=== PATIENT | female | born 1965 | race Caucasian/White ===

== ENCOUNTER 2017-05-23 11:16 | Emergency (ER) | payer MEDICARE, OTHER | END 2017-05-23 21:42 | disposition left against medical advice (07) | LOC: UCCORT 11:16 | DX: R05 Cough (principal); Z53.21 Procedure and treatment not carried out due to patient leaving prior to being seen by health care provider ==

== ENCOUNTER 2017-05-23 11:34 | Emergency (ER) | payer MEDICARE, OTHER ==
[2017-05-23 12:03] VITALS: BP 122/79
--- NOTE | 2017-05-23 12:39 | UC ---
Respiratory Complaint HPI - HPI Summary HPI Summary: Pt c/o cough,SOB with exertion and wheezing X 7 days. Pt is a current everyday smoker. - History of Current Complaint Chief Complaint: UCRespiratory Stated Complaint: COLD LIKE SXS Time Seen by Provider: 05/23/17 12:13 Hx Obtained From: Patient Hx Last Menstrual Period: 05/2016 ?: No Onset/Duration: Gradual Onset, Lasting Days - 7, Still Present Timing: Constant Severity Initially: Mild Severity Currently: Moderate Pain Intensity: 5 Character: Cough: Nonproductive Aggravating Factors: Allergens, Exertion, Deep Breaths Alleviating Factors: Nothing Associated Signs And Symptoms: Positive: Dyspnea, Wheezing, URI, Nasal Congestion Related History: Seasonal Allergies - Risk Factors Pulmonary Embolism Risk Factors: Smoking Cardiac Risk Factors: Smoking Pseudomonas Risk Factors: Negative Tuberculosis Risk Factors: Smoking - Allergies/Home Medications Allergies/Adverse Reactions: Allergies Allergy/AdvReac Type Severity Reaction Status Date / Time No Known Allergies Allergy Verified 05/23/17 12:03 Home Medications: Home Medications Sertraline* [Zoloft*] 50 mg PO DAILY 05/23/17 [History Confirmed 05/23/17] PMH/Surg Hx/FS Hx/Imm Hx Previously Healthy: Yes Other History Of: Negative For: HIV, Hepatitis B, Hepatitis C, Anticoagulant Therapy - Surgical History Surgical History: Yes Surgery Procedure, Year, and Place: LEFT SHOULDER REPLACEMENT ON 02/24/14 - Family History Known Family History: Positive: Cardiac Disease, Diabetes, Renal Disease - Social History Occupation: Employed Full-time Lives: With Family Alcohol Use: None Substance Use Type: None Smoking Status (MU): Heavy Every Day Tobacco Smoker Type: Cigarettes Amount Used/How Often: 1 PPD Length of Time of Smoking/Using Tobacco: since age 18 Have You Smoked in the Last Year: Yes Household Exposure Type: Cigarettes - Immunization History Most Recent Influenza Vaccination: FALL 2015 Most Recent Tetanus Shot: UTD Vaccination Up to Date: Yes Review of Systems Constitutional: Chills, Fatigue Skin: Negative Eyes: Negative ENT: Sinus Congestion Respiratory: Shortness Of Breath - with exertion, Cough Cardiovascular: Negative Gastrointestinal: Negative Genitourinary: Negative Motor: Negative Neurovascular: Negative Musculoskeletal: Negative Neurological: Negative Psychological: Negative Is Patient Immunocompromised?: No All Other Systems Reviewed And Are Negative: Yes Physical Exam Triage Information Reviewed: Yes Appearance: Ill-Appearing Vital Signs: Initial Vital Signs Temp 99.4 F 05/23/17 11:56 Pulse 75 05/23/17 11:56 Resp 18 05/23/17 11:56 BP 122/79 05/23/17 11:56 Pulse Ox 97 05/23/17 11:56 Vital Signs Reviewed: Yes Eye Exam: Normal ENT Exam: Other ENT: Positive: Nasal congestion Neck exam: Normal Respiratory Exam: Other Respiratory: Positive: Wheezing Cardiovascular: Positive: RRR Musculoskeletal Exam: Normal Neurological Exam: Normal Psychological Exam: Normal Skin Exam: Normal UC Diagnostic Evaluation - Laboratory O2 Sat by Pulse Oximetry: 97 Respiratory Course/Dx - Course Course Of Treatment: Pt has long history of smoking. - Differential Dx/Diagnosis Differential Diagnosis/HQI/PQRI: Bronchitis, Influenza, Pulmonary Embolism Provider Diagnoses: bronchitis Discharge - Discharge Plan Condition: Stable Disposition: HOME Prescriptions: Albuterol HFA INHALER* [Ventolin HFA Inhaler*] 1 - 2 puff INH Q4H PRN #1 mdi PRN Reason: Sob/Wheezing Benzonatate CAP* [Tessalon 100 MG CAP*] 100 mg PO Q8H PRN #30 cap PRN Reason: Cough DOXYcycline CAP(*) [DOXYcycline 100MG CAP(*)] 100 mg PO Q12H #20 cap predniSONE TAB* [Deltasone TAB*] 30 mg PO DAILY #12 tab Patient Education Materials: Acute Bronchitis (ED), Wheezing (ED) Referrals: Maria T MORGANPMargarita [Primary Care Provider] - If Needed Additional Instructions: Please follow up with your PCP or return to clinic as needed.
[2017-05-23] MEDS: Levalbuterol 0.63MG/3ML NEB* UNIT OF USE INH ONE (12:41)
== END 2017-05-23 13:07 | disposition home or self-care (01) ==
LOC: UCCORT 11:34
DX: J40 Bronchitis, not specified as acute or chronic (principal); F17.210 Nicotine dependence, cigarettes, uncomplicated
CPT/HCPCS: 99212; G0463; J7614